=== PATIENT | female | born 1970 | race Caucasian/White ===

== ENCOUNTER 2016-05-27 12:22 | Emergency (ER) | payer BC ==
[~2016-05-27] VITALS: Ht 154.9 cm; Wt 82.0 kg
[~2016-05-27 12:22] MED LIST: ATV1 PO; PERCOCET PO; POLY335019 PO; RXC5 PO
[2016-05-27 12:28] VITALS: TEMP 36.5; Ht 154.9 cm; Wt 82.0 kg
[2016-05-27] MEDS ORDERED: NAPR1TAB9 PO (12:42)
[2016-05-27] MEDS ORDERED: KETOROLAC TROMETHAMINE 60 MG/2 ML VIAL IM STA (13:22)
[2016-05-27] MEDS ORDERED: HYDROmorphone INJ 1 MG/ML SYR IM STA (13:22)
--- NOTE | 2016-05-27 14:05 | DIAGNOSTIC IMAGING REPORT ---
LUMBAR SPINE 5 VIEWS HISTORY: Pain low back pain, previous surgery COMPARISON: None. FINDINGS: There is no fracture. No subluxation. Postoperative changes consistent with a fusion from L4 through S1. Vertebral body alignment is anatomic. IMPRESSION: Postoperative changes consistent with laminectomy and fusion from L4 through S1. Otherwise negative study Electronically signed by: Gerry Adan M.D. 05/27/2016 2:04 PM Dictated Date/Time: 05/27/2016 2:03 PM
[2016-05-27] MEDS ORDERED: OXYC1TAB3 PO (14:18)
[2016-05-27] MEDS ORDERED: CYCL10TA6 PO (14:18)
--- NOTE | 2016-05-27 14:20 | EMERGENCY ROOM VISIT NOTE ---
ED Visit Note First contact with patient: 12:50 CHIEF COMPLAINT: Low back pain HISTORY OF PRESENT ILLNESS: This 45-year-old female patient presents to the emergency department ambulatory complaining of pain in the low back which began a few weeks ago and worsened yesterday. The patient reports a significant history of 2 back surgeries performed in 2013. She states these were performed by Dr. Florez. The patient reports that over the past 2 weeks, she has developed a mild aching pain across her lower back. She states that yesterday, the pain worsened significantly. The pain was gradual in onset, is now constant and worse with movement. The pain radiates across her low back, into the left hip and down the front of the left leg into the knee. The patient notes the pain as sharp and a and 10/10. The patient has taken Aleve and oxycodone without relief of the pain. The patient does report a tingling feeling in her left leg. The patient denies any loss of control of their bowel or bladder functions. There has been no leg numbness or weakness. No nausea or vomiting or abdominal pain. No chest pain or shortness of breath. No dysuria or increased urinary frequency. REVIEW OF SYSTEMS: A review of systems was performed with positives and pertinent negatives listed in the history of present illness. All other systems were reviewed and are negative. ALLERGIES: Latex, morphine, penicillins, prednisone MEDICATIONS: MiraLAX PMH: No significant past medical history. SOCIAL HISTORY: The patient lives locally with her . Nonsmoker, denies alcohol use. PHYSICAL EXAM: VITALS: Vitals are noted on the nurse's note and reviewed by myself. Vital signs stable. GENERAL: This is a 45-year-old female, in no acute distress, nondiaphoretic, well-developed well-nourished. SKIN: The skin was without rashes, erythema, edema, or bruising. Capillary refill less than 2 seconds. NECK: Supple without nuchal rigidity. No cervical spine tenderness. No paraspinous muscle tenderness. HEART: Regular rate and rhythm without murmurs gallops or rubs. LUNGS: Clear to auscultation bilaterally without wheezes, rales or rhonchi. ABDOMEN: Positive bowel sounds x 4. Normal tympanic percussion. Soft, nontender, without masses or organomegaly. Peterson sign negative. MUSCULOSKELETAL: No muscle atrophy, erythema, or edema noted of the back. There is no tenderness over the lumbar spinous processes. There is no tenderness over the paraspinous muscles. There is no tenderness over the thoracic spine or paraspinous muscles. There are no muscle spasms present. The patient is slow to move around with maximum tenderness with flexion. Negative straight leg raise test. NEURO: Patient was alert and oriented to person place and time. Normal sensation to light and sharp touch. Deep tendon reflexes 2+ in the lower extremities. Dorsalis pedis pulse 2+ bilaterally. Strength 5/5 and equal in the bilateral lower extremities. EMERGENCY DEPARTMENT COURSE: Patient was evaluated as above. X-rays of the lumbar spine were obtained and were unremarkable. The patient was treated with 1 mg Dilaudid IM and 60 mg Toradol IM with moderate relief of her pain. The patient has radicular back pain, but nothing to suggest cauda equina syndrome or cord compression. She does have an appointment with Dr. Florez this week for evaluation. I did give the patient prescriptions for Flexeril and oxycodone and recommended that she continue naproxen. She will return here for any worsening of her current condition or new/concerning symptoms. She verbalized understanding of my assessment and treatment plan and was discharged home in good condition. DIAGNOSIS: Lumbar radiculopathy Current/Historical Medications Scheduled Cyclobenzaprine Hcl (Flexeril), 10 MG PO TID Naproxen (Aleve), 2-3 TABS PO Q6 Polyethylene Glycol 3350 (Miralax), 4 TSP PO DAILY Scheduled PRN Oxycodone HCl (Oxycodone HCl), 5-10 MG PO Q4H PRN for Pain Oxycodone Ir (Roxicodone Ir), 1-2 TAB PO Q4H PRN for Pain Allergies Coded Allergies: Penicillins (Verified Allergy, Mild, WON'T TAKE; FAMILY HX OF ALLERGY, ) Latex1 -Allergic Contact Dermititis (Verified Allergy, Unknown, BURNING OF SKIN, BLISTERS, 05/27/16) Prednisone (Unverified Allergy, Unknown, rash, , 05/27/16) pt had tablet form and IV form of steriod, developed rash almost as a sunburn, started on chest then moved all over, Morphine (Verified Adverse Reaction, Unknown, FLUSHING, NAUSEA, 05/27/16) Vital Signs Date Time Temp Pulse Resp B/P Pulse Ox O2 Delivery O2 Flow Rate FiO2 05/27/16 14:28 81 16 135/80 97 05/27/16 12:28 36.5 104 18 151/93 99 Room Air Medications Administered Medications (Trade) Dose Ordered Sig/Vincenzo Route Start Time Stop Time Status Last Admin Dose Admin Hydromorphone HCl (Dilaudid Inj) 1 mg NOW STAT IM 05/27/16 13:22 05/27/16 13:24 DC 05/27/16 13:29 1 MG Ketorolac Tromethamine (Toradol Inj) 60 mg NOW STAT IM 05/27/16 13:22 05/27/16 13:24 DC 05/27/16 13:30 60 MG Departure Information Impression Primary Impression: Lumbar radiculopathy Dispostion Home / Self-Care Condition GOOD Prescriptions Oxycodone Ir (Roxicodone Ir) 5 Mg Tab 1-2 TAB PO Q4H Y for Pain, #20 TAB For Initial Treatment Prov: Claire Gallardo PA-C 05/27/16 Cyclobenzaprine Hcl (FLEXERIL) 10 Mg Tab 10 MG PO TID for 5 Days, #15 TAB Prov: Claire Gallardo PA-C 05/27/16 Referrals Mirian CrainD.OYoli (PCP) Patient Instructions [facility] Additional Instructions You have been treated in the Emergency Department for Back Pain. You have received pain medicine in the emergency department which impairs your ability to operate a vehicle. It is illegal for you to drive after receiving these medicines. You have been prescribed OxyIR to be used for pain control. This is a narcotic medication. You cannot drive or consume alcohol while on this medicine. This medicine should only be used for pain that cannot be controlled with over-the- counter pain medicines. You have been prescribed Flexeril (cyclobenzaprine) 1-2 tabs orally, three times per day. Do NOT exceed 30 mg (6 tabs) per day. Take your first dose at bedtime as it can make you drowsy. Always take all medications as prescribed. For pain control, you can use the following [id number] medicines (if >12 yo): - Regular strength (325mg/tab) Tylenol (acetaminophen) 2 tabs every 4-6 hours as needed. Do not exceed 12 tablets in a 24 hour period. Avoid taking more than 4 grams (4000 mg) of Tylenol per day. This includes any other sources of acetaminophen you may take on a regular basis. - Regular strength (200 mg/tab) Advil (ibuprofen) 1-2 tabs every 4-6 hours as needed. Do not exceed a dose of 3200 mg per day. You may use a heating pad over the back for relief. Keep your follow-up appointment with orthopedics this week. Return to the Emergency Department if your current symptoms worsen despite treatment course outlined above, or if you develop any of the following symptoms : intractable pain despite aforementioned treatment course, loss of control of your bowel or bladder, numbness or tingling in your groin, or development of a fever.
[2016-05-27 14:28] VITALS: BP 135/80; PULSE 81; O2SAT 97
[2016-06-05] MEDS ORDERED: RXC5 PO (08:13)
== END 2016-05-27 14:29 | disposition home or self-care (01) ==
LOC: C.EDB 12:24 → C.EDD 14:29
DX: M54.16 Radiculopathy, lumbar region (principal)

== ENCOUNTER 2016-06-02 09:58 | Inpatient (IN) | payer BC ==
[~2016-06-02] VITALS: Ht 154.9 cm; Wt 78.0 kg
[~2016-06-02 09:58] MED LIST changes: -ATV1 PO; +CYCL10TA6 PO; +NAPR1TAB9 PO; +OXYC1TAB3 PO; -PERCOCET PO
[2016-06-02] MEDS: SODIUM CHLORIDE 0.9% 1000ML 1,000 ML IV SCH (10:06)
[2016-06-02] MEDS ORDERED: ACETAMINOPHEN 325 MG TAB PO PRN (10:15)
[2016-06-02] MEDS ORDERED: OXYCODONE/ACETAMINOPHEN 5-325 TAB PO PRN (10:15)
[2016-06-02] MEDS ORDERED: NALOXONE HCL 0.4 MG/1 ML VIAL/CARP IV PRN (10:15)
[2016-06-02] MEDS ORDERED: LORAZEPAM 1 MG TAB PO PRN (10:15)
[2016-06-02] MEDS: LACTATED RINGER'S 1000ML 1,000 ML IV SCH ×2 (11:15→23:32)
[2016-06-02 11:30] VITALS: BP 127/80; PULSE 98; TEMP 36.6; O2SAT 97; Ht 154.9 cm; Wt 78.0 kg
[2016-06-02 12:09] LABS: BASO % 0.1 %; BASO ABS # 0.01 K/uL (0-0.2); COMPLETE YES; EOS % 0.8 %; HEMATOCRIT 39.2 % (37-47); IG% 0.3 %; LYMPH ABS # 1.38 K/uL (1.2-3.4); MEAN CELL VOLUME 84.3 fL (80-100); MEAN CORPUSCULAR HEMOGLOBIN 30.3 pg (25-34); MEAN PLATELET VOLUME 9.2 fL (7.4-10.4); MONO % 4.4 %; NEUT % 76.4 %; PLATELET COUNT 331 K/uL (130-400); RED BLOOD COUNT 4.65 M/uL (4.2-5.4); WHITE BLOOD COUNT 7.68 K/uL (4.8-10.8)
[2016-06-02 12:33] LABS: ALT/SGPT 25 U/L (12-78); BLOOD UREA NITROGEN 21 mg/dl (7-18); BUN/CREATININE RATIO 32.3 (10-20); CALCIUM 9.5 mg/dl (8.5-10.1); CARBON DIOXIDE 26 mmol/L (21-32); CHLORIDE 105 mmol/L (98-107); CREATININE 0.66 mg/dl (0.60-1.20); GLUCOSE 94 mg/dl (70-99); POTASSIUM 3.9 mmol/L (3.5-5.1); SODIUM 140 mmol/L (136-145)
[2016-06-02 12:36] LABS: ALKALINE PHOSPHATASE 107 U/L (45-117); AST/SGOT 21 U/L (15-37)
[2016-06-02 12:45] VITALS: BP 130/81; PULSE 76; TEMP 36.7; O2SAT 97
[2016-06-02] MEDS: HYDROmorphone HCL 0.5MG/ML 50 ML CASSETTE IV PRN ×2 (12:48→15:08)
--- NOTE | 2016-06-02 13:06 | Medical Consult ---
Consultation Date of Consultation: Jun 02, 2016. Attending Physician: Qamar Florez D.O. Reason for Consultation: Preoperative clearance History of Present Illness This patient is a pleasant 45-year-old female that was directly admitted to the hospital from Dr. Florez's office today with uncontrolled back pain radiating down her left thigh. We were asked to see the patient for preoperative clearance. The patient was seen in the emergency department one week ago. She was prescribed oxycodone and Flexeril. This "takes the edge off of the pain." She saw Dr. Florez's PA in the office this morning and was sent directly to the hospital. The patient otherwise has no complaints. She denies any history of coronary artery disease or blood clots. She denies any chest pain or pressure. No dyspnea with exertion. The patient is otherwise fairly active (when she wasn't having pain). She does not smoke. She does not take any medications besides MiraLAX as needed. Past Medical/Surgical History Constipation hx 2 back surgeries in 2013-no reported cardiac complications Family History Grandfather- in his early 40s of a heart attack Mother and father are living and reportedly healthy Father at the age of 34 of an aneurysm Social History Smoking Status: Never Smoker Alcohol Use: socially Marital Status: Housing Status: lives with significant other Occupation Status: employed Allergies Coded Allergies: Penicillins (Verified Allergy, Mild, WON'T TAKE; FAMILY HX OF ALLERGY, ) Latex1 -Allergic Contact Dermititis (Verified Allergy, Unknown, BURNING OF SKIN, BLISTERS, 05/27/16) Prednisone (Unverified Allergy, Unknown, rash, , 05/27/16) pt had tablet form and IV form of steriod, developed rash almost as a sunburn, started on chest then moved all over, Morphine (Verified Adverse Reaction, Unknown, FLUSHING, NAUSEA, 05/27/16) Home Medications MiraLAX when necessary Current Inpatient Medications Current Inpatient Medications Medications (Trade) Dose Ordered Sig/Vincenzo Route Start Time Stop Time Status Last Admin Dose Admin Lactated Ringer's 1,000 ml @ 75 mls/hr [id number] IV 06/02/16 10:06 07/02/16 10:05 Clindamycin Phosphate (Cleocin 600mg/ 54ml D5W) 54 ml @ 100 mls/hr PREOP IV 06/03/16 06:00 06/04/16 05:59 Acetaminophen (Tylenol Tab) 650 mg Q6H PRN PO 06/02/16 10:15 07/02/16 10:14 Docusate Sodium (coLACE CAP) 100 mg BID PO 06/02/16 21:00 07/02/16 20:59 Ondansetron HCl (Zofran Inj) 4 mg Q6H PRN IV 06/02/16 10:15 07/02/16 10:14 Lorazepam (Ativan Tab) 1 mg Q6H PRN PO 06/02/16 10:15 07/02/16 10:14 Oxycodone/ Acetaminophen (Percocet 5-325mg Tab) Moderate to Severe ky... Q4H PRN PO 06/02/16 10:15 06/16/16 10:14 Naloxone HCl (Narcan Inj) 0.1 mg Q5M PRN IV 06/02/16 10:15 07/02/16 10:14 Hydromorphone HCl (Dilaudid Dimension Specification Inspector) 25 mg PRN PRN IV 06/02/16 10:15 06/16/16 10:14 06/02/16 12:48 25 MG Senna/Docusate Sodium 1 tab 1 tab BID PO 06/02/16 21:00 07/02/16 20:59 Sodium Chloride (Nss 1000ml) 1,000 ml @ 15 mls/hr Q24H IV 06/02/16 10:06 07/02/16 10:05 Review of Systems 10 system review performed and negative unless noted in HPI or below Physical Exam Date Time Temp Pulse Resp B/P Pulse Ox O2 Delivery O2 Flow Rate FiO2 06/02/16 11:30 36.6 98 16 127/80 97 Room Air General Appearance: no apparent distress Head: normocephalic Eyes: EOMI Neck: no JVD Respiratory/Chest: lungs clear Cardiovascular: regular rate, rhythm Abdomen/GI: normal bowel sounds, non tender, soft Extremities/Musculoskelatal: no calf tenderness, no pedal edema Neurologic/Psych: no motor/sensory deficits, oriented x 3 Skin: warm/dry Laboratory Results Last 24 Hours Test 06/02/16 10:06 06/02/16 11:15 06/02/16 12:52 White Blood Count 7.68 K/uL Red Blood Count 4.65 M/uL Hemoglobin 14.1 g/dL Hematocrit 39.2 % Mean Corpuscular Volume 84.3 fL Mean Corpuscular Hemoglobin 30.3 pg Mean Corpuscular Hemoglobin Concent 36.0 g/dl Platelet Count 331 K/uL Mean Platelet Volume 9.2 fL Neutrophils (%) (Auto) 76.4 % Lymphocytes (%) (Auto) 18.0 % Monocytes (%) (Auto) 4.4 % Eosinophils (%) (Auto) 0.8 % Basophils (%) (Auto) 0.1 % Neutrophils # (Auto) 5.87 K/uL Lymphocytes # (Auto) 1.38 K/uL Monocytes # (Auto) 0.34 K/uL Eosinophils # (Auto) 0.06 K/uL Basophils # (Auto) 0.01 K/uL RDW Standard Deviation 37.3 fL RDW Coefficient of Variation 12.3 % Immature Granulocyte % (Auto) 0.3 % Immature Granulocyte # (Auto) 0.02 K/uL Sodium Level 140 mmol/L Potassium Level 3.9 mmol/L Chloride Level 105 mmol/L Carbon Dioxide Level 26 mmol/L Anion Gap 9.0 mmol/L Blood Urea Nitrogen 21 mg/dl Creatinine 0.66 mg/dl Estimated GFR () 122.8 Estimated GFR (Non- 105.9 BUN/Creatinine Ratio 32.3 Random Glucose 94 mg/dl Calcium Level 9.5 mg/dl Total Bilirubin 0.3 mg/dl Aspartate Amino Transf (AST/SGOT) 21 U/L Alanine Aminotransferase (ALT/SGPT) 25 U/L Alkaline Phosphatase 107 U/L Total Protein 7.7 gm/dl Albumin 3.8 gm/dl Globulin 3.9 gm/dl Albumin/Globulin Ratio 1.0 Assessment & Plan 45-year-old female with a history of recurrent disc herniation multiple back surgeries now with recurrent pain. According to the patient, there is now a problem at L4/L5. The plan is for surgical intervention pending preop clearance This patient is an otherwise young and fairly healthy female. Her family history however is slightly concerning. She has never had a stress test or echo. -CBC, BMP, PT/INR -EKG -Check echo -Chest x-ray Relatively low risk for cardiac complications pending above work up . Benefits of surgical intervention given this otherwise active female likely outweigh risks of cardiopulmonary complications (pending negative work up). Thank you for this consult. We will continue to follow. This chart was completed in part utilizing [employer] Speech Voice Recognition software. Attempts were made to minimize the grammatical errors, random word insertions, pronoun errors and incomplete sentences. Any formal questions or concerns about the content, text or information contained within the body of this dictation should be directly addressed to the provider for clarification. Addendum Patient was seen and examined by me I discussed and fomulated the assessment and plan with Miss Henson (RADHA), I also agree with her physical exam 45-year-old female sent from Dr. Florez's office today after failing conservative methods to control her back pain. she is healthy, can go up 3 flights of stairs without chest pain 2D echo and EKG ordered and reviewed, no QTc prolongation with normal LV function patient is medically cleared for the procedure as benefits out ways the risks Michael DOLAN Hospitalist
[2016-06-02 13:57] VITALS: BP 118/73; PULSE 96; TEMP 36.8; O2SAT 94
[2016-06-02 14:05] LABS: PREG INTERNAL NEGATIVE QC NEG CLEAR BACKGROUND; PREG INTERNAL POSITIVE QC POS CONTROL LINE
--- NOTE | 2016-06-02 14:19 | DIAGNOSTIC IMAGING REPORT ---
CHEST ONE VIEW PORTABLE CLINICAL HISTORY: preop clearance COMPARISON STUDY: 02/01/2013 FINDINGS: The cardiac and mediastinal contours are normal. There is no evidence of focal pulmonary consolidation. There is no evidence of failure. No pleural effusions are visualized.[ IMPRESSION: No active disease in the chest. Electronically signed by: Estevan Hector M.D. 06/02/2016 2:18 PM Dictated Date/Time: 06/02/2016 2:17 PM
[2016-06-02 15:03] VITALS: BP 122/74; PULSE 86; TEMP 36.6; O2SAT 94
--- NOTE | 2016-06-02 17:11 | ECHOCARDIOGRAM REPORT ---
*NOTICE TO RECEIVING DEMOCRAT AGENCY This information is strictly Confidential and protected under [place] law. [place] law prohibits you from making any further disclosure of this information unless further disclosure is expressly permitted by the written consent of the person to whom it pertains or is authorized by law. A general authorization for the release of medical or other information is not sufficient for this purpose. Hospital accepts no responsibility if the information is made available to any other person, INCLUDING THE PATIENT. Interpretation Summary * Name: ZULEIMA KEITH Study Date: 06/02/2016 03:14 PM BP: 127/80 mmHg * Patient Location: .MSN\S\N378\S\2 HR: 98 * : 1970 (M/d/yyyy) Gender: Female Height: 61 in * Age: 45 yrs Ethnicity: [place] Weight: 171 lb * Ordering Physician: Heaven Henson * Referring Physician: Qamar Florez D.O. * Performed By: Yanci Rios RCS * * Reason For Study: PREOP CLEARANCE * BSA: 1.8 m2 * Normal biventricular systolic function. * Normal chamber dimensions. * No significant valvular abnormalities. Procedure Details * A complete two-dimensional transthoracic echocardiogram was performed (2D, M-mode, Doppler and color flow Doppler). Left Ventricle * The left ventricle is normal in size. * There is normal left ventricular wall thickness. * Ejection Fraction = 65-70%. * Left ventricular systolic function is normal. * The left ventricular wall motion is normal. Right Ventricle * The right ventricle is normal in size and function. Atria * The left atrial size is normal. * Right atrial size is normal. * No ASD detected; PFO is not assessed. Mitral Valve * The mitral valve is normal. * There is no mitral valve stenosis. * There is no mitral regurgitation noted. Tricuspid Valve * The tricuspid valve is not well visualized, but is grossly normal. * There is no tricuspid stenosis. * There is trace tricuspid regurgitation. * Right ventricular systolic pressure is normal. Aortic Valve * The aortic valve is trileaflet. * The aortic valve opens well. * Aortic stenosis is absent. * No aortic regurgitation is present. Pulmonic Valve * The pulmonic valve is not well visualized. * The pulmonary valve is inadequately visualized, but the Doppler data is adequate for interpretation. * There is no pulmonic valvular stenosis. * There is no pulmonic valvular regurgitation. Great Vessels * The aortic root is normal size. Pericardium/Pleural * There is no pericardial effusion. Great Vessels * Normal inferior vena cava diameter and respiratory variation suggests normal central venous pressure. MMode 2D Measurements and Calculations IVSd 0.99 cm IVSs 1.3 cm LVIDd 3.9 cm LVIDs 2.5 cm LVPWd 0.97 cm LVPWs 1.5 cm IVS/LVPW 1.0 FS 35.7 % EDV(Teich) 67.8 ml ESV(Teich) 23.2 ml EF(Teich) 65.8 % EDV(cubed) 61.4 ml ESV(cubed) 16.3 ml EF(cubed) 73.4 % % IVS thick 30.0 % % LVPW thick 56.6 % LV mass(C)d 121.0 grams LV mass(C)dI 68.5 grams/m\S\2 LV mass(C)s 114.0 grams LV mass(C)sI 64.5 grams/m\S\2 CO(Teich) 3.2 l/min CI(Teich) 1.8 l/min/m\S\2 SV(Teich) 44.6 ml SI(Teich) 25.2 ml/m\S\2 CO(cubed) 3.2 l/min CI(cubed) 1.8 l/min/m\S\2 SV(cubed) 45.1 ml SI(cubed) 25.5 ml/m\S\2 Ao root diam 3.4 cm Ao root area 9.1 cm\S\2 ACS 1.7 cm LA dimension 3.3 cm asc Aorta Diam 2.6 cm LA/Ao 0.97 LVAd ap4 28.7 cm\S\2 LVLd ap4 7.5 cm EDV(MOD-sp4) 92.0 ml LVAs ap4 14.6 cm\S\2 LVLs ap4 6.0 cm ESV(MOD-sp4) 30.0 ml EF(MOD-sp4) 67.4 % LVAd ap2 23.9 cm\S\2 LVLd ap2 7.6 cm EDV(MOD-sp2) 64.0 ml LVAs ap2 12.4 cm\S\2 LVLs ap2 6.1 cm ESV(MOD-sp2) 22.0 ml EF(MOD-sp2) 65.6 % CO(MOD-sp4) 4.4 l/min CI(MOD-sp4) 2.5 l/min/m\S\2 SV(MOD-sp4) 62.0 ml SI(MOD-sp4) 35.1 ml/m\S\2 CO(MOD-sp2) 3.0 l/min CI(MOD-sp2) 1.7 l/min/m\S\2 SV(MOD-sp2) 42.0 ml SI(MOD-sp2) 23.8 ml/m\S\2 Doppler Measurements and Calculations MV E max luly 83.4 cm/sec MV A max luly 59.7 cm/sec MV E/A 1.4 MV P1/2t max luly 104.7 cm/sec MV P1/2t 85.0 msec MVA(P1/2t) 2.6 cm\S\2 MV dec slope 360.7 cm/sec\S\2 MV dec time 0.23 sec Ao V2 max 137.3 cm/sec Ao max PG 7.5 mmHg Ao max PG (full) 2.1 mmHg LV V1 max PG 5.5 mmHg LV V1 max 117.0 cm/sec PA V2 max 114.4 cm/sec PA max PG 5.2 mmHg TR max luly 205.1 cm/sec
[2016-06-02] MEDS: ONDANSETRON INJ 2 MG/ML 2 ML VIAL IV PRN (18:32)
[2016-06-02 20:00] VITALS: BP 126/82; PULSE 86; TEMP 36.6; O2SAT 96
[2016-06-02] MEDS ORDERED: DOCUSATE SODIUM 100 MG CAP PO SCH (21:00)
[2016-06-02] MEDS: DOCUSATE SODIUM/SENNA 50/8.6MG TAB PO SCH (21:34)
[2016-06-02] MEDS: DOCUSATE SODIUM 100 MG CAP PO SCH (21:34)
[2016-06-02 23:34] VITALS: BP 124/78; PULSE 78; TEMP 36.7; O2SAT 93
[2016-06-03 03:32] VITALS: BP 104/66; PULSE 77; TEMP 36.6; O2SAT 95
[2016-06-03] MEDS ORDERED: CLINDAMYCIN 600 MG/54 ML D5W 54 ML IV SCH (06:00)
[2016-06-03] MEDS: HYDROmorphone HCL 0.5MG/ML 50 ML CASSETTE IV PRN (07:02)
[2016-06-03 07:24] VITALS: BP 122/75; PULSE 77; TEMP 36.7; O2SAT 97
[2016-06-03 07:58] LABS: INR 1.1 (0.9-1.1); PROTHROMBIN TIME (PATIENT) 11.3 SECONDS (9.0-12.0)
[2016-06-03] MEDS: DOCUSATE SODIUM 100 MG CAP PO SCH ×2 (08:34→20:17)
[2016-06-03] MEDS: ONDANSETRON INJ 2 MG/ML 2 ML VIAL IV PRN ×2 (08:34→20:12)
[2016-06-03] MEDS: DOCUSATE SODIUM/SENNA 50/8.6MG TAB PO SCH ×2 (08:34→20:17)
--- NOTE | 2016-06-03 09:43 | HISTORY & PHYSICAL EXAMINATION ---
DATE OF ADMISSION: 06/02/2016 CHIEF COMPLAINT: Left leg pain. HISTORY OF PRESENT ILLNESS: Ms. Kwon is a patient who is well known to our practice. She had previously undergone a lumbar decompression at the L4-L5 segment with Coflex implantation. She had recurrent disc herniation and fused from L4-S1. We had last seen the patient in 2014. She came back last week with increasing pain in the lower portion of her back and pain going down her left leg. Urgent MRI was obtained. She has a massive far lateral disc herniation L3-L4. For this reason, she was admitted to the hospital under our service and is anticipated to undergo a lumbar decompression at L3-4 segment, removal of hardware from L4 and S1 and fusion from L3-S1. Her pain is quite severe at this point. She can not stand or walk. She was tearful over the past week since her pain has started. She denies any change in bladder or bowel function or any change in balance or gait. PAST MEDICAL HISTORY: Significant for previous back surgeries as mentioned above. She denied any other chronic medical issues. ALLERGIES: PENICILLIN, LATEX, PREDNISONE AND MORPHINE. MEDICATIONS: She uses MiraLax daily. It is her only medication. REVIEW OF SYSTEMS: Recorded in the patient's medical history. SOCIAL HISTORY: The patient is , nonsmoker, occasional alcohol use, currently employed. PHYSICAL EXAMINATION: GENERAL: She is tearful on exam. Positive femoral stretch on the left. Full range of motion of the hips and knees. MUSCULOSKELETAL: Lower extremity motor exam reveals no focal atrophy. Strength and sensation both intact. NEUROLOGIC: Visual alvarenga are grossly intact. CARDIOVASCULAR EXAMINATION: Reveals no gross abnormalities. ABDOMEN: Soft, nontender. EXTREMITIES: Calves are supple and nontender. Peripheral pulses are palpable. RADIOGRAPHIC IMAGES: MRI obtained recently reveals disc desiccation at the L3-4 segment with disc height loss. There is a massive disc herniation in the far lateral position at L3-4. No other fractures or subluxations are noted. ASSESSMENT: Large L3-4 left-sided disc herniation with severe left sciatica. PLAN: At this point she can barely stand and walk, we have admitted her directly to the hospital. Plan is to have her undergo removal of hardware from L4 to sacrum with decompression at L3-4 and continuation of fusion from L3-4. Discussed risks and benefits of the procedure and she has agreed. We will move forward with surgical planning in a timely fashion. KAROL
[2016-06-03] MEDS: SODIUM CHLORIDE 0.9% 1000ML 1,000 ML IV SCH (10:06)
[2016-06-03 11:48] VITALS: BP 118/70; PULSE 79; TEMP 36.7; O2SAT 96
[2016-06-03] MEDS: LACTATED RINGER'S 1000ML 1,000 ML IV SCH (13:03)
[2016-06-03 15:14] VITALS: BP 114/72; PULSE 78; TEMP 36.7; O2SAT 94
--- NOTE | 2016-06-03 17:41 | PROGRESS NOTE ---
DATE: 06/03/2016 SUBJECTIVE: She continues to have severe left anterior thigh pain, weakness, inability to ambulate. She underwent extensive workup today including echocardiogram. Vital signs are stable. T max 36.7. Demonstrating significant weakness to testing, left quadriceps and markedly uncomfortable with activity. ASSESSMENT: Far lateral disk herniation, L3-L4. PLAN: At this time, we are scheduled for surgery tomorrow. We will make her n.p.o. after midnight. Again, surgery would require discectomy and fusion L3-L4 with removal of instrumentation at L4-L5, L5-S1. The patient understands and agrees.
--- NOTE | 2016-06-03 19:08 | Progress Note ---
Subjective Date of Service: Jun 03, 2016. Subjective Pt evaluation today including: conversation w/ patient, physical exam, chart review Review of Systems Respiratory: No cough, No dyspnea at rest, No dyspnea on exertion, No hemoptysis, No problem reported, No see HPI, No shortness of breath, No sputum, No wheezing Cardiac: No PND, No chest pain, No claudication, No edema, No orthopnea, No palpitations, No problem reported, No see HPI Objective Vital Signs Date Time Temp Pulse Resp B/P Pulse Ox O2 Delivery O2 Flow Rate FiO2 06/03/16 15:14 36.7 78 18 114/72 94 Room Air 06/03/16 11:48 36.7 79 18 118/70 96 Room Air 06/03/16 07:40 Room Air 06/03/16 07:24 36.7 77 17 122/75 97 Room Air 06/03/16 03:32 36.6 77 14 104/66 95 Room Air 06/02/16 23:34 36.7 78 14 124/78 93 Room Air 06/02/16 23:20 Room Air 06/02/16 20:00 36.6 86 18 126/82 96 Room Air Physical Exam General Appearance: WD/WN, no apparent distress Eyes: normal inspection, PERRL, EOMI ENT: normal ENT inspection, hearing grossly normal, TMs normal Neck: supple, no adenopathy, thyroid normal Respiratory/Chest: chest non-tender, lungs clear, normal breath sounds Cardiovascular: regular rate, rhythm, no edema, no gallop, no JVD Abdomen: normal bowel sounds, non tender, soft Extremities: normal range of motion, non-tender, normal inspection Neurologic/Psychiatric: international marketing executive II-XII nml as tested, no motor/sensory deficits, alert, normal mood/affect Skin: normal color Laboratory Results Last 24 Hours Test 06/03/16 06:57 Prothrombin Time 11.3 SECONDS Prothromb Time International Ratio 1.1 Assessment and Plan Preop eval. Medically cleared to undergo back surgery. Echo with normal LV and RV systolic fn and no significant valvular abnoramlity
[2016-06-03 19:09] VITALS: BP 102/70; PULSE 98; TEMP 36.8; O2SAT 95
[2016-06-03 23:42] VITALS: BP 123/76; PULSE 77; TEMP 36.6; O2SAT 95
[2016-06-04] VITALS (8 sets, daily range): BP systolic 105–118; BP diastolic 63–72; PULSE 72–91; TEMP 36.5–36.8; O2SAT 92–100
[2016-06-04] MEDS: LACTATED RINGER'S 1000ML 1,000 ML IV SCH ×3 (01:49→19:44)
--- NOTE | 2016-06-04 07:12 | History & Physical Bridge Note ---
H&P Re-Evaluation Bridge Note: I have examined the patient, reviewed the History & Physical and in the interval since the performance of the History & Physical I have noted the following changes of clinical significance: No changes noted
[2016-06-04] MEDS: HYDROmorphone HCL 0.5MG/ML 50 ML CASSETTE IV PRN ×2 (07:21→14:15)
[2016-06-04] MEDS: DOCUSATE SODIUM 100 MG CAP PO SCH ×2 (09:00→21:00)
[2016-06-04] MEDS: DOCUSATE SODIUM/SENNA 50/8.6MG TAB PO SCH (09:00)
[2016-06-04] MEDS: SODIUM CHLORIDE 0.9% 1000ML 1,000 ML IV SCH (10:06)
[2016-06-04] MEDS ORDERED: SCOPOLAMINE 1.5 MG TDSY TD ONE ×2 (11:19→11:30)
[2016-06-04] MEDS ORDERED: MIDAZOLAM HCL 1 MG/ML 2ML VIAL ONE (11:22)
[2016-06-04] MEDS ORDERED: FENTANYL CITRATE INJ 50 MCG/1 ML 2 ML VIAL ONE ×2 (11:22→12:45)
[2016-06-04] MEDS ORDERED: LABETALOL HCL IV 5 MG/ML 20ML IV PRN (11:30)
[2016-06-04] MEDS ORDERED: ONDANSETRON INJ 2 MG/ML 2 ML VIAL IV PRN ×2 (11:30→14:00)
[2016-06-04] MEDS ORDERED: ATROPINE SULFATE 0.1 MG/ML 5ML SYR IV PRN (11:30)
[2016-06-04] MEDS ORDERED: PROMETHAZINE HCL INJ 12.5 MG in SODIUM CHLORIDE 0.9% 50ML 50 ML IV PRN ×2 (11:30→14:00)
[2016-06-04] MEDS ORDERED: BUPIVACAINE/EPINEPHRINE 0.5% MPF 1:200,000 30 ML VIAL ONE (11:58)
[2016-06-04] MEDS ORDERED: SODIUM CHLORIDE 0.9% PF 50 ML VIAL ONE (11:58)
[2016-06-04] MEDS ORDERED: BACITRACIN 50000 UNIT VIAL ONE (11:59)
[2016-06-04] MEDS ORDERED: HYDROmorphone INJ 2 MG/ML SYR/VIAL ONE ×3 (12:45→14:07)
[2016-06-04] MEDS ORDERED: LIDOCAINE HCL 2% 2 ML VIAL (20MG/ML) ONE (13:44)
[2016-06-04] MEDS ORDERED: PHENYLEPHRINE 100MCG/ML 5ML SYR ONE ×2 (13:44→14:23)
[2016-06-04] MEDS ORDERED: ROCURONIUM BROMIDE 10 MG/ML 5 ML VIAL ONE (13:44)
[2016-06-04] MEDS ORDERED: PROPOFOL IV EMULSION 10 MG/ML 20 ML VIAL IV ONE (13:44)
[2016-06-04] MEDS ORDERED: ONDANSETRON INJ 2 MG/ML 2 ML VIAL ONE (13:44)
[2016-06-04] MEDS ORDERED: DEXAMETHASONE SOD INJ 4 MG/ML VIAL ONE (13:44)
[2016-06-04] MEDS ORDERED: FLOSEAL HEMOSTATIC MATRIX 10ML TOP ONE (13:46)
--- NOTE | 2016-06-04 13:48 | [facility] Post Operative Brief Note ---
Immediate Operative Summary Operative Date Jun 04, 2016. Pre-Operative Diagnosis L3-4 Disc Herniation Post-Operative Diagnosis same as pre-operative Procedure(s) Performed L3-L4 Lumbar Decompression and Fusion, with Instrumentation; Interbody fusion with application of interbody cage at L3-4; Use of johnny allograft, use of bone morphogenetic protein; L4-L5, L5-S1 Removal of Hardware Surgeon Dr. Qamar Florez Courtesy Van Driver Surgeon(s) Chante Sinclair PA-C Estimated Blood Loss 200ml Findings hnp/stenosis Specimens none per surgeon
[2016-06-04] MEDS ORDERED: SODIUM CHLORIDE 0.9% 1000ML 1,000 ML IV SCH (13:51)
[2016-06-04] MEDS ORDERED: HYDROmorphone HCL 0.5MG/ML 50 ML CASSETTE IV PRN (14:00)
[2016-06-04] MEDS ORDERED: LORAZEPAM INJ 0.5 MG in SYRINGE 0 ML IV PRN (14:00)
[2016-06-04] MEDS ORDERED: FAMOTIDINE 20 MG TAB PO PRN (14:00)
[2016-06-04] MEDS ORDERED: MAGNESIUM HYDROXIDE SUSP 30 ML UDC PO PRN ×2 (14:00)
[2016-06-04] MEDS ORDERED: ACETAMINOPHEN 500 MG TAB PO PRN (14:00)
[2016-06-04] MEDS ORDERED: BISACODYL 10 MG SUPP PR PRN ×2 (14:00)
[2016-06-04] MEDS ORDERED: ALUMINUM/MAGNESIUM SUSP 30 ML UDC PO PRN (14:00)
[2016-06-04] MEDS ORDERED: NALOXONE HCL 0.4 MG/1 ML VIAL/CARP IV PRN ×3 (14:00)
[2016-06-04] MEDS ORDERED: METOCLOPRAMIDE HCL INJ 5 MG/ML 2 ML VIAL IV PRN (14:00)
[2016-06-04] MEDS ORDERED: hydrOXYzine HCL 25 MG TAB PO PRN (14:00)
[2016-06-04] MEDS ORDERED: ACETAMINOPHEN IV 100 ML IV PRN (14:00)
[2016-06-04] MEDS ORDERED: LORAZEPAM 0.5 MG TAB PO PRN (14:00)
[2016-06-04] MEDS ORDERED: CEFAZOLIN IV 2,000 MG in DEXTROSE 5% 50ML 50 ML IV SCH (14:00)
[2016-06-04] MEDS ORDERED: DO NOT ADMINISTER FLU VACCINE PRN ×3 (14:00)
[2016-06-04] MEDS ORDERED: DO NOT ADMINISTER PNEUMOCOCCAL VACCINE PRN ×2 (14:00)
[2016-06-04] MEDS ORDERED: SOD PHOSPHATE/SOD BIPHOSPHATE ENEMA 132 ML BTL PR PRN ×2 (14:00)
--- NOTE | 2016-06-04 14:18 | DIAGNOSTIC IMAGING REPORT ---
INTRAOPERATIVE RADIOGRAPHS CLINICAL HISTORY: L3-S1 spinal fusion. Fluoroscopy time: 7 seconds. FINDINGS: 2 spot fluoroscopic views of the lumbar spine are presented. There is evidence of discectomy at L3-L4, L4-L5, and L5-S1 with laminectomy and posterior fusion. Interpedicular screws are present at L3-L4. The orthopedic hardware appears intact. IMPRESSION: Intraoperative images from lumbar spinal fusion surgery as above. Electronically signed by: Noel Vieira M.D. 06/04/2016 2:17 PM Dictated Date/Time: 06/04/2016 2:16 PM
[2016-06-04] MEDS: HYDROmorphone INJ 2 MG/ML SYR/VIAL IV PRN ×4 (14:19→14:35)
[2016-06-04] MEDS ORDERED: GLYCOPYRROLATE INJ 0.2 MG/ML VIAL ONE (14:23)
[2016-06-04] MEDS ORDERED: KETOROLAC TROMETHAMINE 30 MG/ML VIAL ONE (14:23)
[2016-06-04] MEDS ORDERED: ESMOLOL HCL 10 MG/ML 10 ML VIAL ONE (14:23)
[2016-06-04] MEDS ORDERED: NEOSTIGMINE METHYLSULFATE 1 MG/ML 10ML VIAL ONE (14:23)
--- NOTE | 2016-06-04 14:39 | OPERATIVE REPORT ---
DATE OF OPERATION: 06/04/2016 PREOPERATIVE DIAGNOSIS: Herniated nucleus pulposus, spinal stenosis L3-4. POSTOPERATIVE DIAGNOSIS: Same. PROCEDURES PERFORMED: 1. Removal of posterior segmental instrumentation L4-5 and L5-S1. 2. Exploration of fusion L4-5 and L5-S1. 3. Lumbar decompression, medial facetectomy, and foraminotomy L3-4. 4. Posterior spinal fusion L3-4. 5. Placement posterior instrumentation using Orthros rods and screws, L3-4. 6. Interbody fusion L3-4. 7. Placement of PEEK cage 12 x 22 mm at L3-4. 8. Placement of locally harvested morselized autograft in the posterior gutters. 9. Placement of Infuse collagen sponge combined with Mastergraft in the posterior gutters and Amalia bone grafting in the interbody space. SURGEON: Dr. Qamar Florez. HEAVY EQUIPMENT SUPERVISOR: Chante Herrera PA-C. Due to the complex nature of the procedure, the entire surgery was performed with the operator assistant i cementing of RADHA Guzman. The administrative assistant front desk, under direct supervision, was involved in the actual performance of all aspects of the surgical procedure including hemostasis, tissue retraction and incision, instrument management, patient positioning, and wound closure. ANESTHESIA: General. DISPOSITION: The patient awakened and taken to PACU in stable condition. HISTORY OF PATIENT'S PROBLEMS: This is a 45-year-old female that presents with above-mentioned diagnosis after failing an extensive course of nonoperative care, elected to undergo the above-mentioned procedure. Risks, benefits, pros, cons, and alternatives were outlined in detail preoperatively. DESCRIPTION OF PROCEDURE: The patient was met with preoperatively, the case discussed and all questions were addressed. At that point the patient was taken back to the operative suite and after undergoing successful general intubation by the department of anesthesia was placed in prone position on Russell table atop the Aashish frame. All bony prominences were well padded and the eyes were inspected to ensure there was no external pressure placed upon them. At this point, lumbar spine was prepped and draped in normal sterile fashion. Sharp dissection with assistance of Bovie cautery was performed down to and exposing the lamina and transverse processes of L3 and in the instrumentation at L4, L5 and S1 levels bilaterally. I then proceeded to remove the hardware bilaterally, exploring the fusion mass, noting it to be intact. I then performed a complete laminectomy of L3 addressing severe bilateral lateral recess stenosis as well as a massive far lateral disk herniation on the left. After complete decompression, pedicle screws were then placed in L3, L4 bilaterally with assistance of fluoroscopy and appropriately sized nara provisionally placed. Through a transforaminal approach on the left, a complete discectomy was performed, endplates curetted to subcortical bleeding bone and a 12 x 22 mm PEEK cage filled with Amalia bone grafting tapped into position. The rods were then compressed, locked into final position bilaterally and transverse processes of L3 and L4 burred to subcortical bleeding bone. Infuse collagen sponge combined with Mastergraft and locally harvested morcellized autograft was placed in the posterior gutters. A 7 flat NIRALI drain was inserted. Incision was closed with 1-0 Vicryl in the fascia, 2-0 Vicryl subcutaneously, 4-0 Monocryl for final skin closure. Steri-Strips and sterile dressing placed. The patient was awakened and taken to PACU in stable condition. I attest to the content of the Intraoperative Record and any orders documented therein. Any exceptio ns are noted below.
--- NOTE | 2016-06-04 14:47 | Anesthesiology Progress Note ---
Anesthesia Post Op Note Date & Time Jun 04, 2016 at 14:47 Vital Signs Vital Signs Past 12 Hours Date Time Temp Pulse Resp B/P Pulse Ox O2 Delivery O2 Flow Rate FiO2 06/04/16 14:35 79 16 126/70 100 4 06/04/16 14:25 81 16 118/69 100 4 06/04/16 14:15 88 16 130/68 100 10 06/04/16 14:06 37.3 88 16 126/75 100 10 06/04/16 08:10 Room Air 06/04/16 07:05 36.5 72 20 118/72 95 Room Air 06/04/16 04:03 Room Air Notes Mental Status: alert / awake / arousable, participated in evaluation Pt Amnestic to Procedure: Yes Nausea / Vomiting: adequately controlled Pain: adequately controlled Airway Patency, RR, SpO2: stable & adequate BP & HR: stable & adequate Hydration State: stable & adequate Anesthetic Complications: no major complications apparent
[2016-06-04] MEDS: CLINDAMYCIN IV 600 MG in DEXTROSE 5% ADD-VANTAGE 50ML 50 ML IV SCH (19:42)
[2016-06-04] MEDS ORDERED: DOCUSATE SODIUM/SENNA 50/8.6MG TAB PO SCH ×2 (21:00)
[2016-06-04] MEDS: DEXAMETHASONE INJ 6 MG in SYRINGE 0 ML IV SCH (21:29)
[2016-06-05 00:06] VITALS: BP 142/73; PULSE 73; TEMP 36.7; O2SAT 93
[2016-06-05] MEDS: LACTATED RINGER'S 1000ML 1,000 ML IV SCH (02:28)
[2016-06-05 03:38] VITALS: BP 112/70; PULSE 85; TEMP 36.7; O2SAT 96
[2016-06-05] MEDS: CLINDAMYCIN IV 600 MG in DEXTROSE 5% ADD-VANTAGE 50ML 50 ML IV SCH (03:51)
[2016-06-05] MEDS ORDERED: HYDROmorphone INJ 0.5 MG/0.5 ML SYR IV PRN (06:00)
[2016-06-05] MEDS ORDERED: DC PCA SCH (06:00)
[2016-06-05] MEDS: DEXAMETHASONE INJ 6 MG in SYRINGE 0 ML IV SCH (06:00)
[2016-06-05] MEDS ORDERED: HYDROmorphone INJ 1 MG/ML SYR IV PRN (06:00)
[2016-06-05] MEDS ORDERED: NURSING DECISION MEDICATION ORDER SCH (06:15)
[2016-06-05 07:39] VITALS: BP 121/73; PULSE 69; TEMP 36.7; O2SAT 98
[2016-06-05] MEDS: DOCUSATE SODIUM 100 MG CAP PO SCH (07:39)
[2016-06-05 07:45] LABS: COMPLETE YES; EOS % 0.1 %; HEMATOCRIT 32.8 % (37-47); IG% 0.3 %; LYMPH % 14.6 %; LYMPH ABS # 1.56 K/uL (1.2-3.4); MEAN CELL VOLUME 84.1 fL (80-100); MEAN CORPUSCULAR HEMOGLOBIN 29.7 pg (25-34); MEAN CORPUSCULAR HGB CONC 35.4 g/dl (32-36); MEAN PLATELET VOLUME 8.8 fL (7.4-10.4); MONO % 6.3 %; NEUT % 78.7 %; PLATELET COUNT 275 K/uL (130-400); WHITE BLOOD COUNT 10.72 K/uL (4.8-10.8)
[2016-06-05] MEDS ORDERED: RXC5 PO (08:13)
--- NOTE | 2016-06-05 08:13 | Discharge Instructions ---
Discharge Instructions Date of Service Jun 05, 2016. Admission Reason for Admission: Left L3-L4 Disc Herniation Discharge Discharge Diagnosis / Problem: stenosis Discharge Goals Goal(s): Improve function Activity Recommendations Activity Limitations: per Instructions/Follow-up section . Instructions / Follow-Up Instructions / Follow-Up ACTIVITY RECOMMENDATIONS: SELF CARE INSTRUCTIONS AFTER THORACIC/LUMBAR FUSIONS 1. You may walk to your tolerance. It is good exercise for your legs and back. Expect some back and intermittent leg aches and pains. 2. You may perform "counter-top" level activities (make a sandwich, vanessa with a project, etc.). 3. No bending or lifting of more than 10 pounds or back twisting of any nature (roll like a log when turning in bed). 4. You may ride in a car for 20-30 minutes at a time. No driving until after your first visit with your doctor. 5. Frequent changes of position and restricting sitting to 30 minutes at a time will help limit the amount of back spasms and stiffness you may experience. 6. You may discontinue the use of ambulatory aids (cane, crutches, etc.) once your strength and confidence allow. 7. You may assembly machine tool setter the shower and let water strike your incision when you arrive home at least once daily. Do not take a tub bath, sit in a hot tub or go into a swimming pool until after your first recheck in the office. SPECIAL CARE INSTRUCTIONS: VERY IMPORTANT TO READ AND REVIEW A. Your surgical incision has been closed with a cosmetic suture under the skin that will dissolve in about 6 weeks. In 14 days, you can use a pair of clean scissors and cut the suture that is left outside of the skin at the ends of your incision. 1. The small skin tapes can be removed 7 days after surgery if they have not fallen off by that point. 2. You may keep the wound open to air as much as possible to promote healing after post-op day number 5 unless told otherwise by your doctor. 3. If you think the wound looks like it is becoming infected (redness or worsening drainage) and/or you are experiencing fever, chill or worsening back pain and muscle spasms, contact the office so that we may evaluate you as soon as possible. B. Complications are uncommon, but please contact us if you have any signs or symptoms of: 1. wound infection (fever higher than 102.5 degrees F, redness, separation of wound, drainage, or increasing pain from the incision) 2. blood clots in legs (pain, swelling, redness and warmth in legs) 3. urinary tract infection (fever higher than 102.5 degrees F, burning upon urination or increased frequency of urination) 4. nerve problems (inability to walk on your toes or heels, numbness, loss of bowel or bladder control) 5. any other symptoms that concern you C. Please call the office at if you have any concerns or questions about your operation or recovery. D. No smoking! Smoking drastically decreases the chance of a solid fusion. E. Do not take any anti-inflammatory medications (Indocin, Advil, Motrin, Aspirin, Naprosyn, etc.) as these may inhibit the chance of a solid fusion. Tylenol is okay to take for pain. MANAGING PAIN AFTER SPINAL SURGERY 1. Narcotic medication is intended for short-term use and will be provided for surgical pain. Surgical pain usually lasts for a period of 4-6 weeks. Narcotic medication includes Percocet, Vicodin, Darvocet, Tylenol #3 or Lortab. 2. Longer-term pain is more appropriately treated with non-narcotic medication such as Tylenol ES. 3. Muscle spasm is not appropriately treated with narcotics. Muscle relaxers such as Soma, Flexeril or Skelaxin can be used along with Tylenol ES. 4. Remember that we all live with some "aches and pains". This is not unusual or uncommon after an injury or as we get older. a. Back pain is expected and may include muscle spasms for 4 to 6 weeks after surgery. The pain should gradually improve. If the pain worsens for no apparent reason, please contact the office. b. Intermittent leg pain may also be experienced and should not be concerned about unless it worsens for no apparent reason. If so, please contact the office. 5. We will provide appropriate medication within the normal guidelines of their prescribed use. We will also be very cautious and aware of potential abuse and extended duration of patients' medication needs. a. Pain medications are for your comfort and to assist with sleep and rest so that the tissue can heal. They are not provided in order to return to normal activity and should not be used through the day. To do so or worsening pain at night can result from ongoing tissue damage and development of tolerance to the prescribed medicine. 6. Please allow 2-3 days to process refills. Prescriptions will not be mailed but must be picked up at the office. FOLLOW UP VISIT: Keep your scheduled follow-up appointment. Any questions, please call the office at . Current Hospital Diet Patient's current hospital diet: Regular Diet Discharge Diet Recommended Diet: Regular Diet Procedures Procedures Performed: L3-L4 Lumbar Decompression and Fusion, with Instrumentation; Interbody fusion with application of interbody cage at L3-4; Use of johnny allograft, use of bone morphogenetic protein; L4-L5, L5-S1 Removal of Hardware Pending Studies Studies pending at discharge: no Medical Emergencies . Who to Call and When: Medical Emergencies: If at any time you feel your situation is an emergency, please call 911 immediately. . Non-Emergent Contact Non-Emergency issues call your: Primary Care Provider . "Provider Documentation" section prepared by Qamar Florez. VTE Core Measure Inpt VTE Proph given/why not?: Eunice Douglass, SCD's
[2016-06-05 08:18] LABS: BUN/CREATININE RATIO 20.3 (10-20); CREATININE 0.6 mg/dl (0.60-1.20); POTASSIUM 3.7 mmol/L (3.5-5.1)
--- NOTE | 2016-06-05 08:31 | Anesthesiology Progress Note ---
Anesthesia Post Op Note Date & Time Jun 05, 2016 at 08:30 Vital Signs Pain Intensity: 0.0 Vital Signs Past 12 Hours Date Time Temp Pulse Resp B/P Pulse Ox O2 Delivery O2 Flow Rate FiO2 06/05/16 07:39 36.7 69 17 121/73 98 Room Air 06/05/16 03:38 36.7 85 16 112/70 96 Room Air 06/05/16 00:06 36.7 73 16 142/73 93 Room Air Notes Mental Status: alert / awake / arousable, participated in evaluation Pt Amnestic to Procedure: Yes Nausea / Vomiting: adequately controlled Pain: adequately controlled Airway Patency, RR, SpO2: stable & adequate BP & HR: stable & adequate Hydration State: stable & adequate Anesthetic Complications: no major complications apparent
[2016-06-05] MEDS: OXYCODONE HCL IR 5 MG TAB (IMMEDIATE RELEASE) PO PRN ×2 (09:53→11:03)
--- NOTE | 2016-06-05 09:58 | DISCHARGE SUMMARY ---
PREOPERATIVE DIAGNOSIS: Herniated nucleus pulposus. HOSPITAL COURSE FOLLOWS: On 06/02/2016 patient was admitted for marked decline in status and pain control. She underwent preoperative evaluation and on 06/04/2016 underwent lumbar decompression and fusion L3-L4. She tolerated this well, ambulating postoperatively. Symptoms markedly improved. NIRALI drained 70 mL over the last shift. Hematocrit stable at 32.8. Subsequently, she was discharged home postop day #1 with home health to manage the drain. She will follow up in the office in 2 weeks.
[2016-06-05 11:22] VITALS: BP 109/72; PULSE 91; TEMP 36.6; O2SAT 97
[2016-06-05 11:24] VITALS: BP 109/72; PULSE 91; TEMP 36.6; O2SAT 97
[2016-06-06] MEDS ORDERED: POLYETHYLENE (MIRALAX) 17 GM PACK PO SCH ×2 (06:00)
== END 2016-06-05 13:00 | disposition home health service (06) | DRG 460 ==
LOC: C.MSN 10:45
PROVIDERS: ADMIT Orthopaedic Surgery Orthopaedic Surgery of the Spine; ATTEND Orthopaedic Surgery Orthopaedic Surgery of the Spine
PROC: 0SP004Z Removal of Internal Fixation Device from Lumbar Vertebral Joint, Open Approach (ICD-10-PCS; principal; 2016-06-04 12:15)
PROC: 0SG00AJ Fusion of Lumbar Vertebral Joint with Interbody Fusion Device, Posterior Approach, Anterior Column, Open Approach (ICD-10-PCS; principal; 2016-06-04 12:15)
PROC: 0SP304Z Removal of Internal Fixation Device from Lumbosacral Joint, Open Approach (ICD-10-PCS; principal; 2016-06-04 12:15)
PROC: 3E0V0GB Introduction of Recombinant Bone Morphogenetic Protein into Bones, Open Approach (ICD-10-PCS; principal; 2016-06-04 12:15)
PROC: 0ST20ZZ Resection of Lumbar Vertebral Disc, Open Approach (ICD-10-PCS; principal; 2016-06-04 12:15)
PROC: 0SG0071 Fusion of Lumbar Vertebral Joint with Autologous Tissue Substitute, Posterior Approach, Posterior Column, Open Approach (ICD-10-PCS; principal; 2016-06-04 12:15)
DX: M51.26 Other intervertebral disc displacement, lumbar region (principal); Z88.0 Allergy status to penicillin; M48.06 Spinal stenosis, lumbar region

== ENCOUNTER → 2016-07-17 | Outpatient (CLI) | payer BC ==
[~2016-07-17] MED LIST changes: -CYCL10TA6 PO; -NAPR1TAB9 PO
--- NOTE | 2016-07-17 11:32 | DIAGNOSTIC IMAGING REPORT ---
Venous Doppler left leg LEFT VENOUS DOPP LOWER EXT UNILAT CLINICAL HISTORY: LT LEG PAIN TECHNIQUE: Ultrasound COMPARISON STUDY: None FINDINGS: Normal study IMPRESSION: Normal study Electronically signed by: Gerry Adan M.D. 07/17/2016 11:31 AM Dictated Date/Time: 07/17/2016 11:27 AM
== END | disposition home or self-care (01) ==
LOC: C.ULTRBC 10:51
PROVIDERS: ATTEND Orthopaedic Surgery Orthopaedic Surgery of the Spine
DX: M79.662 Pain in left lower leg (principal)